=== PATIENT | female | born 1995 | race Caucasian/White ===

== ENCOUNTER 2022-08-07 10:58 | Observation (INO) | payer SELFPAY ==
[~2022-08-07] VITALS: Ht 162.6 cm; Wt 90.9 kg
--- NOTE | 2022-08-07 11:33 | ED GU-Female ---
General Chief Complaint: - Reproductive Stated Complaint: BACK PAIN / ABD PAIN Nursing Triage Note: pt presents to ED with c/o dysuria, retention, and lower abdominal pain since this morning. pt is 12weeks . Source: patient Exam Limitations: no limitations (LEMUEL SAEZ APRN) History of Present Illness Date Seen by Provider: Aug 07, 2022 Time Seen by Provider: 11:17 Initial Comments 27-year-old female presents to the ED with complaints of right flank pain that radiates to right lower abdomen starting last night. She also reports burning with urination. She reports her last menstrual cycle was May 06, has not taken a test, not certain if she is , but thinks she is. Reports her cycles are normally regular. Reports last bowel movement was this morning. States that she has been having a bowel movement every day, denies issues with constipation. Denies fevers, chest pain, shortness of air, nausea, vomiting, diarrhea. Denies any past medical history. G2, P2. (LEMUEL SAEZ APRN) Allergies and Home Medications Allergies Coded Allergies: No Known Drug Allergies (Unverified , 08/07/22) Patient Home Medication List Home Medication List Reviewed: Yes (LEMUEL SAEZ APRN) Hydrocodone/Acetaminophen (Hydrocodone-Acetamin 5-325 mg) 5 Mg-325 Mg Tablet, 1 TAB PO q6 PRN for PAIN SEVERE Prescribed by: ELIEZER SMITH MD on 08/08/22 1630 Nitrofurantoin Monohyd/M-Cryst (Macrobid 100 mg Capsule) 100 Mg Capsule, 1 TAB PO BID Prescribed by: ELIEZER SMITH MD on 08/08/22 1630 Review of Systems Review of Systems Constitutional: see HPI (LEMUEL SAEZ APRN) Past Vvmqjhh-Thmpjw-Tbnhqm Hx Patient Social History Tobacco Use?: No Substance use?: No Alcohol Use?: No Pt feels they are or have been: No (LEMUEL SAEZ APRN) Immunizations Up To Date Influenza Vaccine Up-to-Date: No; Not Current (LEMUEL SAEZ APRN) Physical Exam Vital Signs Vital Signs - First Documented 08/07/22 08/07/22 11:05 17:37 Temp 36.9 Pulse 68 Resp 18 B/P (MAP) 125/71 (89) Pulse Ox 97 O2 Delivery Room Air (MISTY WETZEL MD) Vital Signs Capillary Refill : Less Than 3 Seconds (LEMUEL SAEZ APRN) Height, Weight, BMI Height: '" Weight: lbs. oz. kg; 34.00 BMI Method: General Appearance: WD/WN, no apparent distress Neck: supple, normal inspection Cardiovascular: regular rate, rhythm, no edema, no gallop, no JVD, no murmur Respiratory: lungs clear, normal breath sounds, no respiratory distress, no accessory muscle use Gastrointestinal: normal bowel sounds, soft, guarding, tenderness (Right lower quadrant and left lower quadrant) Pelvic: normal external exam, normal adnexa; No vaginal bleeding Back: no CVA tenderness Extremities: normal range of motion, normal inspection Neurologic/Psychiatric: alert, normal mood/affect Skin: normal color, warm/dry (LEMUEL SAEZ APRN) Progress/Results/Core Measures Suspected Sepsis SIRS Temperature: Pulse: 68 Respiratory Rate: 18 Laboratory Tests 08/07/22 12:00: White Blood Count 9.1 Blood Pressure 125 /71 Mean: 89 Laboratory Tests 08/07/22 12:00: Creatinine 0.71, Platelet Count 255, Total Bilirubin 0.5 (LEMUEL SAEZ APRN) Results/Orders Lab Results Laboratory Tests Test 08/07/22 16:25 08/07/22 16:35 Range/Units Urine Color YELLOW Urine Clarity CLEAR Urine pH 6.0 5-9 Urine Specific [place] 1.020 1.016-1.022 Urine Protein NEGATIVE NEGATIVE Urine Glucose (UA) NEGATIVE NEGATIVE Urine Ketones 2+ H NEGATIVE Urine Nitrite NEGATIVE NEGATIVE Urine Bilirubin NEGATIVE NEGATIVE Urine Urobilinogen 0.2 < = 1.0 MG/DL Urine Leukocyte Esterase NEGATIVE NEGATIVE Urine RBC (Auto) 1+ H NEGATIVE Urine RBC 0-2 /HPF Urine WBC NONE /HPF Urine Squamous Epithelial Cells 0-2 /HPF Urine Crystals NONE /LPF Urine Bacteria NEGATIVE /HPF Urine Casts NONE /LPF Urine Mucus NEGATIVE /LPF Urine Culture Indicated NO (MISTY WETZEL MD) Micro Results Microbiology 08/07/22 Wet Prep - Final, Complete (MISTY WETZEL MD) Vital Signs/I&O Capillary Refill : Less Than 3 Seconds (LEMUEL SAEZ APRN) Blood Pressure Mean: 89 Progress Note : Time: 11:34 Progress Note Patient seen and evaluated, resting comfortably bed, no acute distress. Based on exam and symptoms, differential diagnosis includes but not limited to UTI, pyelonephritis, nephrolithiasis, ectopic , appendicitis. Work-up initiated includes UA, UCG, CMP, CBC, lipase, amylase, hCG quantitative, Rh type, ultrasound, and abdominal ultrasound. 1432 labs reviewed. CBC shows normal WBC 9.1, normal hemoglobin 12.7, neutrophils percentage slightly elevated 86. CMP shows elevated chloride 109. hCG is 35,584. UA shows trace intact RBCs, 10-25 squamous epithelial cells, few bacteria. botanical technical officer called for ultrasound. 1600 botanical technical officer reported that patient's bladder was very distended, making it difficult to perform ultrasound. botanical technical officer stated that she had patient go to the bathroom twice during exam, was unable to empty bladder. Nursing staff here had her try to urinate again after ultrasound, patient was unable to go. Patient has urinated 3 times during ER stay. Bladder scan performed, 1182 mls in bladder. Will insert Calvo catheter. 1626 pelvic exam performed at this time. Calvo catheter inserted this time. Will repeat UA. 1712 patient had a lot of urinary output, she feels much better, states her pain is gone. Repeat UA shows 1+ RBCs, 2+ ketones. UA negative for nitrates, leukocytes, WBC, and bacteria. I called Dr. Mansfield, obstetrics, for recommendations. He recommends removing catheter at this time and to admit patient for observation for several hours to make sure that she is able to urinate. I will place bridge orders. (LEMUEL SAEZ APRN) Diagnostic Imaging Diagonstic Imaging: Ultrasound Plain Films/CT/US/NM/MRI: pelvis Comments [facility] [place] NAME: ANDREIA HENDRICKS [facility] REC#: [id number] PT STATUS: REG ER : 1995 PHYSICIAN: LEMUEL SAEZ APRN ADMIT DATE: 08/07/22/ER Signed Date of Exam:08/07/22 US OB<14 WKS SNGLE W/TRANSVAG TECHNIQUE: Live grayscale and color Doppler ultrasound of the pelvis is obtained. Both transabdominal and endovaginal imaging was performed. REASON FOR EXAM: Vaginal bleeding. Pelvic pain. COMPARISON: None. FINDINGS: A single live intrauterine gestation is visualized. The crown-rump length measures 8.4 cm, consistent with a 14 week 2 day gestation. heart tones measure 153 bpm. The placenta is anterior and has a normal appearance. The gestational sac demonstrates normal size and contours. There is normal TERESA. No obvious abnormalities are identified. The ovaries are not well visualized due to overlapping bowel gas. No adnexal masses seen. No free fluid in the pelvis. IMPRESSION: 1. Single live intrauterine gestation measuring 14 weeks 2 days and estimated due date of 02/03/2023. These are within range of the clinical dates. Recommend continued followup as indicated. 2. No acute sonographic abnormalities are seen. Dictated by: Dictated on workstation # [id number] Dict: 08/07/22 1453 Trans: 08/07/22 1459 [facility] [id number] Interpreted by: MARICRUZ COLLINS DO Electronically signed by: MARICRUZ COLLINS DO 08/07/22 1459 Diagonstic Imaging: Ultrasound Plain Films/CT/US/NM/MRI: abdomen Comments [facility] [place] NAME: ANDREIA HENDRICKS [facility] REC#: [id number] PT STATUS: REG ER : 1995 PHYSICIAN: LEMUEL SAEZ APRN ADMIT DATE: 08/07/22/ER Signed Date of Exam:08/07/22 US ABDOMEN LIMITED [id number] EXAMINATION: US Abdomen limited. TECHNIQUE: Multiple real-time grayscale images were obtained over the right upper quadrant in various projections. REASON FOR EXAM: Right-sided abdominal pain. COMPARISON: None. FINDINGS: The liver is normal in size and shape. The liver echogenicity is within normal limits. There are no focal lesions. No intrahepatic biliary dilatation is present. The common bile duct is not dilated and measures 1-2 mm. The main portal vein is hepatopedal. No ascites in the upper abdomen. There is no evidence of cholelithiasis, gallbladder wall thickening or pericholecystic fluid. Sonographic Watson's sign is negative. The visualized portion of the head of the pancreas are within normal limits. The body and tail of the pancreas are not well visualized due to overlying bowel gas. The visualized portions of the IVC and aorta appear normal. The right kidney measures approximately 10.6 cm in length. There is mild right-sided hydronephrosis. IMPRESSION: 1. No cholelithiasis or acute cholecystitis. No liver or gallbladder abnormality detected. 2. Mild right-sided hydronephrosis. This can be related to and continued followup is recommended. Dictated by: Dictated on workstation # [id number] Dict: 08/07/221450 Trans: 08/07/221454 CVB [id number] Interpreted by: MARICRUZ COLLINS DO Electronically signed by: MARICRUZ COLLINS DO 08/07/221454 (LEMUEL SAEZ APRN) Departure Communication (Admissions) Time/Spoke to Admitting Phy: 17:[address] Mansfield, obstetrics, regarding patient. He will admit patient for observation. (LEMUEL SAEZ APRN) Impression Primary Impression: Urinary retention Additional Impressions: Qualified Codes: Z34.90 - Encounter for supervision of normal , unspecified, unspecified trimester Right sided abdominal pain Disposition: ADMITTED INPATIENT Condition: Stable Admissions Decision to Admit Reason: Admit from ER (General) Decision to Admit/Date: Aug 07, 2022 Time/Decision to Admit Time: 17:12 (LEMUEL SAEZ APRN) Departure-Patient Inst. Referrals: NO,LOCAL PHYSICIAN (PCP/Family) Primary Care Physician ATTENDING PHYSICIAN NOTE: I was physically present as attending physician in the emergency department during the care of this patient I reviewed clinical presentation, labs, imaging studies, and plan of care with [facility]. I discussed selection of imaging studies. I recommended placement of a Calvo catheter for the urinary retention and consultation with obstetrics. I did not personally interview or examine this patient. I was not otherwise directly involved in the decision making or delivery of care for this patient. (MISTY WETZEL MD) LEMUEL SAEZ APRN Aug 07, 2022 11:33 MISTY WETZEL MD Aug 09, 2022 14:06
[2022-08-07 11:44] LABS: BILIRUBIN,URINE NEGATIVE (NEGATIVE); CLARITY,URINE CLOUDY; COLOR,URINE YELLOW; GLUCOSE, URINE (UA) NEGATIVE (NEGATIVE); KETONES,URINE NEGATIVE (NEGATIVE); LEUKOCYTE ESTERASE ,URINE NEGATIVE (NEGATIVE); NITRITE,URINE NEGATIVE (NEGATIVE); PROTEIN,URINE NEGATIVE (NEGATIVE)
[2022-08-07] MEDS ORDERED: fentaNYL INJ 100 MCG/2 ML AMP IVP ONE ×2 (12:00→15:00)
[2022-08-07 12:10] LABS: BASOPHILS % (AUTO) 0 % (0-10); EOSINOPHILS % (AUTO) 0 % (0-10); HEMATOCRIT 36 % (35-52); HEMOGLOBIN 12.7 g/dL (11.5-16.0); LYMPHOCYTES # (AUTO) 0.9 10^3/uL (1.0-4.0); LYMPHOCYTES % (AUTO) 10 % (12-44); MEAN CORPUSCULAR HEMOGLOBIN 31 pg (25-34); MEAN CORPUSCULAR HGB CONC 35 g/dL (32-36); MEAN CORPUSCULAR VOLUME 88 fL (80-99); MEAN PLATELET VOLUME 9.7 fL (9.0-12.2); MONOCYTES # (AUTO) 0.3 10^3/uL (0.0-1.0); MONOCYTES % (AUTO) 4 % (0-12); NEUTROPHILS # (AUTO) 7.8 10^3/uL (1.8-7.8); NEUTROPHILS % (AUTO) 86 % (42-75); PLATELET COUNT 255 10^3/uL (130-400); WHITE BLOOD COUNT 9.1 10^3/uL (4.3-11.0)
[2022-08-07 12:13] LABS: BACTERIA,URINE FEW /HPF; RBC,URINE RARE /HPF
[2022-08-07 12:21] LABS: ALBUMIN 3.7 GM/DL (3.2-4.5); POTASSIUM 4.2 MMOL/L (3.6-5.0)
[2022-08-07 12:22] LABS: CALCIUM 9.8 MG/DL (8.5-10.1)
[2022-08-07 12:24] LABS: TOTAL PROTEIN 6.9 GM/DL (6.4-8.2)
[2022-08-07 12:25] LABS: BILIRUBIN,TOTAL 0.5 MG/DL (0.1-1.0)
[2022-08-07 12:27] LABS: CREATININE SERUM 0.71 MG/DL (0.60-1.30)
--- NOTE | 2022-08-07 14:55 | Diagnostic Imaging Report ---
EXAMINATION: US Abdomen limited. TECHNIQUE: Multiple real-time grayscale images were obtained over the right upper quadrant in various projections. REASON FOR EXAM: Right-sided abdominal pain. COMPARISON: None. FINDINGS: The liver is normal in size and shape. The liver echogenicity is within normal limits. There are no focal lesions. No intrahepatic biliary dilatation is present. The common bile duct is not dilated and measures 1-2 mm. The main portal vein is hepatopedal. No ascites in the upper abdomen. There is no evidence of cholelithiasis, gallbladder wall thickening or pericholecystic fluid. Sonographic Watson's sign is negative. The visualized portion of the head of the pancreas are within normal limits. The body and tail of the pancreas are not well visualized due to overlying bowel gas. The visualized portions of the IVC and aorta appear normal. The right kidney measures approximately 10.6 cm in length. There is mild right-sided hydronephrosis. IMPRESSION: 1. No cholelithiasis or acute cholecystitis. No liver or gallbladder abnormality detected. 2. Mild right-sided hydronephrosis. This can be related to and continued followup is recommended. Dictated by: Dictated on workstation # [id number]
--- NOTE | 2022-08-07 14:58 | Diagnostic Imaging Report ---
TECHNIQUE: Live grayscale and color Doppler ultrasound of the pelvis is obtained. Both transabdominal and endovaginal imaging was performed. REASON FOR EXAM: Vaginal bleeding. Pelvic pain. COMPARISON: None. FINDINGS: A single live intrauterine gestation is visualized. The crown-rump length measures 8.4 cm, consistent with a 14 week 2 day gestation. heart tones measure 153 bpm. The placenta is anterior and has a normal appearance. The gestational sac demonstrates normal size and contours. There is normal TERESA. No obvious abnormalities are identified. The ovaries are not well visualized due to overlapping bowel gas. No adnexal masses seen. No free fluid in the pelvis. IMPRESSION: 1. Single live intrauterine gestation measuring 14 weeks 2 days and estimated due date of 02/03/2023. These are within range of the clinical dates. Recommend continued followup as indicated. 2. No acute sonographic abnormalities are seen. Dictated by: Dictated on workstation # [id number]
[2022-08-07 16:45] LABS: BILIRUBIN,URINE NEGATIVE (NEGATIVE); CLARITY,URINE CLEAR; COLOR,URINE YELLOW; GLUCOSE, URINE (UA) NEGATIVE (NEGATIVE); KETONES,URINE 2+ (NEGATIVE); LEUKOCYTE ESTERASE ,URINE NEGATIVE (NEGATIVE); NITRITE,URINE NEGATIVE (NEGATIVE); PROTEIN,URINE NEGATIVE (NEGATIVE)
[2022-08-07 17:08] LABS: BACTERIA,URINE NEGATIVE /HPF; RBC,URINE 0-2 /HPF; SQUAMOUS EPITHELIAL CELL,UR 0-2 /HPF
[2022-08-07 18:05] VITALS: BP 107/53
[2022-08-07 18:25] VITALS: BP 107/53
[2022-08-07] MEDS ORDERED: LACTATED RINGERS 1,000 ML IV SCH (19:15)
--- NOTE | 2022-08-07 19:28 | OB Triage Report ---
Standard Progress Note Progress Notes/Assess & Plan Date Seen by a Provider: Aug 07, 2022 Time Seen by a Provider: 18:45 Expected Date of Delivery: Feb 04, 2023 Gestational Age in Weeks: 14 Gestational Age in Days: 1 LMP/YOMI Comment: By US today Progress/Assessment & Plan at 14w2d presents to the ER with abdominal pain. She has not had any care in this . She has not been able to void since this am. This has happened in previous pregnancies and her electric shipyard operator gave her abx, which helped. She was seen in the ER and a straight cath yielded 1100cc per ER doc. She had a pelvic and abdominal US showing a viable IUP at 14w2d. Normal GB US. No evidence of stones. Mild hydronephrosis on the right, likely related. All: NKDA Meds: PNVs PMH: Neg PSH: C/S x1 (then ). Soc: Denies tob/drugs/EtOH. She is [employer]regational. Exam: A+Ox3 L: Non-labored CV: RRR Abd: Soft, non-tender. Non-distended. Ext: Neg Magdalena's : RN reported that the catheter was easily placed without resistance. Labs: CBC wnl. UA: +Ketones and RBCs. Neg Nitrites, neg Leukes A/P IUP at 14w2d No PNC Urinary retention - 1100cc removed via catheter in the ER. We will give her IVF to hydrate her and see if she is able to void in the next 4 hours. If so, she will be discharged tonight. If unable to void by 10pm, we will insert a Calvo over night to monitor UO and remove the Calvo in the am for another voiding trial. We discussed medications such as Flomax, but I would prefer not to use it in . Final Diagnosis IUP at 14w2d No care. Urinary retention. ATIYA GAMA DO Aug 07, 2022 19:28
[2022-08-07 21:45] VITALS: BP 112/58
[2022-08-08] MEDS ORDERED: NITR-65 PO (16:30)
[2022-08-08] MEDS ORDERED: ACHD5005 PO (16:30)
== END 2022-08-07 22:54 | disposition home or self-care (01) ==
LOC: ER 11:01 → LDRP 17:47 → UNDOADMOB 17:47 → LDRP 18:05 → UNDODISOB 22:54
PROVIDERS: ADMIT Obstetrics & Gynecology; ATTEND Obstetrics & Gynecology
DX: O99.891 Other specified diseases and conditions complicating pregnancy (principal); R33.9 Retention of urine, unspecified; Z3A.14 14 weeks gestation of pregnancy
CPT/HCPCS: 51702; 76705; 76801; 76817; 80053; 81000; 82150; 83690; 84702; 84703; 85025; 86900; 86901; 87210; 87491; 87591; 96360; 99284; G0378; 36415

== ENCOUNTER 2022-08-08 14:30 | Emergency (ER) | payer SELFPAY ==
[~2022-08-08] VITALS: Ht 162.6 cm; Wt 104.6 kg
--- NOTE | 2022-08-08 14:40 | ED GU-Female ---
General Stated Complaint: DIFF URINATING/3 MONTHS History of Present Illness Date Seen by Provider: Aug 08, 2022 Time Seen by Provider: 14:40 Initial Comments 27-year-old female who is [id number], with an YOMI of 02/03/2023, and who is 14 weeks , is here with complaints of ongoing right-sided flank pain radiating to her groin. Patient went to [facility] yesterday for the same complaints and was monitored and L&D for a few hours. Patient also has difficulty in voiding urine. Her bladder was drained in the ER yesterday, and was sent home with a straight cath. Patient has not been drinking much water in the past few weeks. Pt has nit established OB care yet as she has recently moved from [place] to [place]. She is supposed to have an OB appointment next week w hanna Allan. Denies fever and chills, abdominal pain, vaginal bleeding or discharge, dysuria, hematuria, nausea or vomiting. Allergies and Home Medications Allergies Coded Allergies: No Known Drug Allergies (Unverified , 08/07/22) Patient Home Medication List Home Medication List Reviewed: Yes No Active Prescriptions or Reported Meds Review of Systems Review of Systems Constitutional: no symptoms reported EENTM: no symptoms reported Respiratory: no symptoms reported Cardiovascular: no symptoms reported Gastrointestinal: no symptoms reported Genitourinary: see HPI, flank pain, other : Yes Expected Date of Delivery: Feb 03, 2023 Musculoskeletal: no symptoms reported Skin: no symptoms reported Psychiatric/Neurological: No Symptoms Reported Endocrine: No Symptoms Reported Physical Exam Vital Signs Vital Signs - First Documented 08/08/22 14:32 Temp 36.6 Pulse 82 Resp 18 B/P (MAP) 109/60 (76) Pulse Ox 99 O2 Delivery Room Air Capillary Refill : Height, Weight, BMI Height: '" Weight: lbs. oz. kg; 34.38 BMI Method: General Appearance: WD/WN, mild distress HEENT: PERRL/EOMI Neck: full range of motion Cardiovascular: regular rate, rhythm, no edema Respiratory: chest non-tender, lungs clear, normal breath sounds Gastrointestinal: normal bowel sounds, soft, tenderness (Right flank pain radiating into her right groin) Pelvic: normal external exam Back: normal inspection, no CVA tenderness Extremities: normal range of motion Neurologic/Psychiatric: alert, normal mood/affect, oriented x 3 Skin: normal color Focused Exam Lactate Level 08/08/22 15:30: Lactic Acid Level 0.92 Lactic Acid Level Laboratory Tests Test 08/08/22 15:30 Lactic Acid Level 0.92 MMOL/L (0.50-2.00) Progress/Results/Core Measures Suspected Sepsis SIRS Temperature: Pulse: Respiratory Rate: Laboratory Tests 08/08/22 15:00: White Blood Count 9.5 Blood Pressure / Mean: 08/08/22 15:30: Lactic Acid Level 0.92 Laboratory Tests 08/08/22 15:00: Creatinine 0.59L, Platelet Count 252, Total Bilirubin 0.6 Results/Orders Lab Results Laboratory Tests Test 08/08/22 14:46 08/08/22 15:00 08/08/22 15:30 Range/Units Urine Color YELLOW Urine Clarity CLEAR Urine pH 6.5 5-9 Urine Specific [place] 1.010 L 1.016-1.022 Urine Protein NEGATIVE NEGATIVE Urine Glucose (UA) NEGATIVE NEGATIVE Urine Ketones NEGATIVE NEGATIVE Urine Nitrite NEGATIVE NEGATIVE Urine Bilirubin NEGATIVE NEGATIVE Urine Urobilinogen 0.2 < = 1.0 MG/DL Urine Leukocyte Esterase NEGATIVE NEGATIVE Urine RBC (Auto) TRACE-I H NEGATIVE Urine RBC 5-10 H /HPF Urine WBC NONE /HPF Urine Squamous Epithelial Cells 2-5 /HPF Urine Crystals NONE /LPF Urine Bacteria TRACE /HPF Urine Casts NONE /LPF Urine Mucus NEGATIVE /LPF Urine Culture Indicated NO White Blood Count 9.5 4.3-11.0 10^3/uL Red Blood Count 3.93 3.80-5.11 10^6/uL Hemoglobin 12.0 11.5-16.0 g/dL Hematocrit 35 35-52 % Mean Corpuscular Volume 89 80-99 fL Mean Corpuscular Hemoglobin 31 25-34 pg Mean Corpuscular Hemoglobin Concent 35 32-36 g/dL Red Cell Distribution Width 12.7 10.0-14.5 % Platelet Count 252 130-400 10^3/uL Mean Platelet Volume 9.3 9.0-12.2 fL Immature Granulocyte % (Auto) 0 % Neutrophils (%) (Auto) 83 H 42-75 % Lymphocytes (%) (Auto) 13 12-44 % Monocytes (%) (Auto) 4 0-12 % Eosinophils (%) (Auto) 0 0-10 % Basophils (%) (Auto) 0 0-10 % Neutrophils # (Auto) 7.9 H 1.8-7.8 10^3/uL Lymphocytes # (Auto) 1.2 1.0-4.0 10^3/uL Monocytes # (Auto) 0.3 0.0-1.0 10^3/uL Eosinophils # (Auto) 0.0 0.0-0.3 10^3/uL Basophils # (Auto) 0.0 0.0-0.1 10^3/uL Immature Granulocyte # (Auto) 0.0 0.0-0.1 10^3/uL Sodium Level 134 L 135-145 MMOL/L Potassium Level 3.8 3.6-5.0 MMOL/L Chloride Level 101 98-107 MMOL/L Carbon Dioxide Level 21 21-32 MMOL/L Anion Gap 12 5-14 MMOL/L Blood Urea Nitrogen 6 L 7-18 MG/DL Creatinine 0.59 L 0.60-1.30 MG/DL Estimat Glomerular Filtration Rate 127 BUN/Creatinine Ratio 10 Glucose Level 94 70-105 MG/DL Calcium Level 9.3 8.5-10.1 MG/DL Corrected Calcium 9.5 8.5-10.1 MG/DL Magnesium Level 1.9 1.6-2.4 MG/DL Total Bilirubin 0.6 0.1-1.0 MG/DL Aspartate Amino Transf (AST/SGOT) 18 5-34 U/L Alanine Aminotransferase (ALT/SGPT) 12 0-55 U/L Alkaline Phosphatase 44 40-136 U/L Total Protein 6.9 6.4-8.2 GM/DL Albumin 3.7 3.2-4.5 GM/DL Lipase 15 8-78 U/L Lactic Acid Level 0.92 0.50-2.00 MMOL/L My Orders Orders - ELIEZER SMITH MD Ua Culture If Indicated (08/08/22 14:40) Cbc With Automated Diff (08/08/22 14:57) Comprehensive Metabolic Panel (08/08/22 14:57) Lactic Acid Analyzer (08/08/22 14:57) Lipase (08/08/22 14:57) Magnesium (08/08/22 14:57) Ed Iv/Invasive Line Start (08/08/22 14:57) Ns Iv 1000 Ml (Sodium Chloride 0.9%) (08/08/22 15:00) Vital Signs/I&O 08/08/22 14:32 Temp 36.6 Pulse 82 Resp 18 B/P (MAP) 109/60 (76) Pulse Ox 99 O2 Delivery Room Air Capillary Refill : Progress Note : Progress Note 1. RIGHT FLANK PAIN WITH HYDRONEPHROSIS AND URINARY RETENTION: -Ultrasound was done yesterday at [facility] which shows a right-sided hyd ronephrosis - CBC/ CMP: unremarkable - UA is positive for RBC's, no infection - FHR: 145/ min - NS IVF bolus STAT - OB CONSULT via phone: Discussed with Dr. Mansfield, who recommended discharging patient with a Calvo leg bag, prescription for Macrobid for 5 days to prevent any UTI from the Calvo, and recommended Tylenol for mild to moderate pain and [place] for severe pain. Dr. Mansfield recommends patient to be seen by her OB by tomorrow. - Patient is supposed to have an OB appointment with Dr. Trammell next week, as patient has not established OB care yet since they have recently moved to [place] from [place]. -Prescription given for Macrobid twice a day for 5 days -Advised Tylenol 650 mg for mild to moderate pain, every 4 hours, and [place] for q6H for severe pain -Patient likely has a kidney stone which is not showing up on the ultrasound. Patient has right-sided colicky flank pain radiating to her groin, with urinary retention, and RBCs in the urine, which all points to a stone. -Advised to call Dr. Allan's office tomorrow and see if it would be possible for patient to follow-up in the clinic tomorrow itself. -The patient was seen in the ED, and treated appropriately to presentation at a specific point in time. Patient is informed that there is a possibility that disease and illness can evolve and change in acuity rapidly or slowly after patient is discharged from the ER. Precautionary advice given to the patient for immediate return to ER if symptoms worsen or do not resolve, and to seek emergency care sooner rather than later. Pt also advised on the importance of PCP follow up and compliance with management and follow up plan with PCP and/or specialist, as this is part of the management plan. Pt verbally expressed understanding. Departure Communication (Admissions) Time/Spoke to Consulting Phy: 16:[address] Mansfield, OB consult, who recommended discharging patient with a Calvo leg bag, prescription for Macrobid for 5 days to prevent any UTI from t he Calvo, and recommended Tylenol for mild to moderate pain and [place] for severe pain. Dr. Mansfield recommends patient to be seen by her OB by tomorrow. Impression Primary Impression: Hydronephrosis of right kidney Additional Impression: Urinary retention Disposition: HOME, SELF-CARE Condition: Improved Departure-Patient Inst. Referrals: NO,LOCAL PHYSICIAN (PCP/Family) Primary Care Physician Patient Instructions: Calvo Catheter, How to Care for Your Calvo Catheter, Urinary Retention (DC), Hydronephrosis in Adults, Hydronephrosis, Adult (DC) Add. Discharge Instructions: - Patient is supposed to have an OB appointment with Dr. Trammell next week, as patient has not established OB care yet since they have recently moved to [place] from [place]. -Prescription given for Macrobid twice a day for 5 days -Advised Tylenol 650 mg for mild to moderate pain, every 4 hours, and [place] for q6H for severe pain -Patient likely has a kidney stone which is not showing up on the ultrasound. Patient has right-sided colicky flank pain radiating to her groin, with urinary retention, and RBCs in the urine, which all points to a stone. -Advised to call Dr. Allan's office tomorrow and see if it would be possible for patient to follow-up in the clinic tomorrow itself. Scripts Hydrocodone/Acetaminophen (Hydrocodone-Acetamin 5-325 mg) 5 Mg-325 Mg Tablet 1 TAB PO q6 PRN for PAIN SEVERE for 2 Days, #3 TAB Prov: ELIEZER SMITH MD 08/08/22 Nitrofurantoin Monohyd/M-Cryst (Macrobid 100 mg Capsule) 100 Mg Capsule 1 TAB PO BID for 5 Days, #10 CAP Prov: ELIEZRE SMITH MD 08/08/22 ELIEZER SMITH MD Aug 08, 2022 14:40
[2022-08-08 14:52] LABS: BILIRUBIN,URINE NEGATIVE (NEGATIVE); CLARITY,URINE CLEAR; COLOR,URINE YELLOW; GLUCOSE, URINE (UA) NEGATIVE (NEGATIVE); KETONES,URINE NEGATIVE (NEGATIVE); LEUKOCYTE ESTERASE ,URINE NEGATIVE (NEGATIVE); NITRITE,URINE NEGATIVE (NEGATIVE); PH,URINE 6.5 (5-9); PROTEIN,URINE NEGATIVE (NEGATIVE)
[2022-08-08 14:56] LABS: BACTERIA,URINE TRACE /HPF
[2022-08-08] MEDS ORDERED: NS IV 1000 ML 1,000 ML IV SCH (15:00)
[2022-08-08 15:05] LABS: BASOPHILS % (AUTO) 0 % (0-10); EOSINOPHILS % (AUTO) 0 % (0-10); HEMATOCRIT 35 % (35-52); LYMPHOCYTES # (AUTO) 1.2 10^3/uL (1.0-4.0); LYMPHOCYTES % (AUTO) 13 % (12-44); MEAN CORPUSCULAR HEMOGLOBIN 31 pg (25-34); MEAN CORPUSCULAR HGB CONC 35 g/dL (32-36); MEAN CORPUSCULAR VOLUME 89 fL (80-99); MEAN PLATELET VOLUME 9.3 fL (9.0-12.2); MONOCYTES # (AUTO) 0.3 10^3/uL (0.0-1.0); MONOCYTES % (AUTO) 4 % (0-12); NEUTROPHILS # (AUTO) 7.9 10^3/uL (1.8-7.8); NEUTROPHILS % (AUTO) 83 % (42-75); PLATELET COUNT 252 10^3/uL (130-400); WHITE BLOOD COUNT 9.5 10^3/uL (4.3-11.0)
[2022-08-08 15:26] LABS: ALBUMIN 3.7 GM/DL (3.2-4.5); BILIRUBIN,TOTAL 0.6 MG/DL (0.1-1.0); CALCIUM 9.3 MG/DL (8.5-10.1); CREATININE SERUM 0.59 MG/DL (0.60-1.30); MAGNESIUM 1.9 MG/DL (1.6-2.4); POTASSIUM 3.8 MMOL/L (3.6-5.0); TOTAL PROTEIN 6.9 GM/DL (6.4-8.2)
[2022-08-08] MEDS ORDERED: ACHD5005 PO (16:30)
[2022-08-08] MEDS ORDERED: NITR-65 PO (16:30)
[2022-08-08 16:38] VITALS: BP 109/61
== END 2022-08-08 16:39 | disposition home or self-care (01) ==
LOC: EDUNIT# 14:30 → ER FS 14:34
DX: O99.891 Other specified diseases and conditions complicating pregnancy (principal); N13.30 Unspecified hydronephrosis; R33.9 Retention of urine, unspecified; Z28.310 Unvaccinated for COVID-19; Z3A.14 14 weeks gestation of pregnancy
CPT/HCPCS: 36415; 51702; 80053; 81000; 83605; 83690; 83735; 85025